=== PATIENT | female | born 1975 | race African-American/Black ===

== ENCOUNTER 2018-08-23 11:45 | Emergency (ER) | payer MEDICAID ==
[~2018-08-23] VITALS: Ht 152.4 cm; Wt 68.0 kg
[~2018-08-23 11:45] MED LIST: ALBU05; AMLO5TAB4 PO; CARB200T MT
[2018-08-23 12:04] VITALS: BP 131/90
[2018-08-24] MEDS ORDERED: ASPI-986 PO (17:44)
[2018-08-24] MEDS ORDERED: HYDR12.54 PO (17:44)
== END 2018-08-23 16:44 | disposition left against medical advice (07) ==
LOC: ER 11:45
DX: Z53.21 Procedure and treatment not carried out due to patient leaving prior to being seen by health care provider (principal)
CPT/HCPCS: 93005

== ENCOUNTER 2018-09-05 11:45 | Emergency (ER) | payer MEDICAID ==
[~2018-09-05 11:45] MED LIST changes: +ASPI-986 PO; +HYDR12.54 PO
[2018-09-05 11:51] VITALS: BP 137/98
== END 2018-09-05 16:12 | disposition left against medical advice (07) ==
LOC: ER 12:23
DX: R07.9 Chest pain, unspecified (principal); R42 Dizziness and giddiness; Z53.21 Procedure and treatment not carried out due to patient leaving prior to being seen by health care provider
CPT/HCPCS: 93005

== ENCOUNTER 2018-11-22 16:14 | Emergency (ER) | payer MEDICAID ==
[~2018-11-22] VITALS: Ht 149.9 cm; Wt 61.0 kg
[~2018-11-22 16:14] MED LIST changes: -ALBU05; +ALBU05 PO
[2018-11-22 16:19] VITALS: BP 118/75
== END 2018-11-22 19:31 | disposition left against medical advice (07) ==
LOC: ER 16:14
DX: Z53.21 Procedure and treatment not carried out due to patient leaving prior to being seen by health care provider (principal)
CPT/HCPCS: 93005

== ENCOUNTER 2018-11-23 09:47 | Inpatient (IN) | payer MEDICAID ==
[~2018-11-23] VITALS: Ht 160 cm; Wt 60.8 kg
[2018-11-23] MEDS ORDERED: ONDANSETRON HCL 4MG/2ML INJ IV STA (18:41)
[2018-11-23] MEDS ORDERED: MORPHINE SULFATE 4 MG/ML CPJ (NOT FOR IM USE) IV STA (18:41)
[2018-11-23] MEDS ORDERED: ASPIRIN 325MG TABLET PO ONE (18:45)
[2018-11-23 19:22] LABS: BASOPHILS % 0.4 % (0.0-2.0); EOSINOPHILS % 3.7 % (0.0-5.0); HEMATOCRIT. 34.8 % (36.0-48.0); HEMOGLOBIN. 11.4 g/dL (12.0-16.0); LYMPHOCYTES % 44.1 % (20.0-50.0); MEAN CORPUSCULAR HEMOGLOBIN 28.1 pg (28.0-32.0); MEAN CORPUSCULAR VOLUME 85.5 fL (81.0-99.0); MEAN PLATELET VOLUME 8.4 fl (7.4-10.4); MONOCYTES % 12.1 % (2.0-8.0); NEUTROPHILS % 39.7 % (40.0-76.0); PLATELET 281 x1000/uL (130-400); RED BLOOD CELL COUNT 4.07 mill/uL (4.2-5.4); RED CELL DISTRIBUTION WIDTH 13.4 % (11.6-14.6)
[2018-11-23 19:25] LABS: CHLORIDE 109 mEq/L (98-107)
[2018-11-23 19:29] LABS: ETHANOL BLOOD < 10 mg/dL
[2018-11-23 21:02] LABS: CLARITY URINE CLOUDY (CLEAR); COLOR URINE YELLOW (YELLOW); KETONES URINE TRACE (NEGATIVE); LEUKOCYTE ESTERASE URINE 2+ (NEGATIVE); NITRITE URINE POSITIVE (NEGATIVE); OCCULT BLOOD URINE NEGATIVE (NEGATIVE); PH URINE 6.5 (4.5-8.0); PROTEIN URINE TRACE (NEGATIVE); SPECIFIC GRAVITY URINE 1.026 (1.005-1.030)
[2018-11-23 21:24] LABS: *AMPHETAMINES SCREEN URINE NEGATIVE (NEGATIVE); *BARBITURATES SCREEN URINE NEGATIVE (NEGATIVE); *BENZODIAZEPINES SCREEN URINE NEGATIVE (NEGATIVE); METHADONE URINE SCREEN NEGATIVE (NEGATIVE)
[2018-11-23 21:25] LABS: CANNABINOID URINE SCREEN NEGATIVE (NEGATIVE); PHENCYCLIDINE URINE SCREEN NEGATIVE (NEGATIVE)
[2018-11-23 21:30] LABS: *COCAINE SCREEN URINE PRESUMTIVE POSITIVE (NEGATIVE)
[2018-11-23 21:31] LABS: OPIATES URINE SCREEN PRESUMTIVE POSITIVE (NEGATIVE)
[2018-11-23] MEDS ORDERED: CEFTRIAXONE 1 G PREMIX 50 ML IV ONE (22:30)
[2018-11-23] MEDS ORDERED: POTASSIUM CHLORIDE 20MEQ TABLET SR PO SCH (22:30)
[2018-11-23] MEDS ORDERED: CARBAMAZEPINE 200MG TABLET PO ONE (22:45)
[2018-11-23] MEDS ORDERED: LORAZEPAM 2MG/ML CPJ IV PRN (23:45)
[2018-11-23] MEDS ORDERED: GUAIFENESIN 200MG/10ML SUGAR FREE UDC PO PRN (23:45)
[2018-11-23] MEDS ORDERED: IPRATROPIUM/ALBUTEROL 0.5-3(2.5)MG/3ML NEB INH PRN (23:45)
[2018-11-23] MEDS ORDERED: DIPHENHYDRAMINE 50MG/ML VIAL IV PRN (23:45)
[2018-11-23] MEDS ORDERED: HYDROCODONE/ACETAMINOPHEN 10/325MG TABLET PO PRN (23:45)
[2018-11-23] MEDS ORDERED: MAGNESIUM/ALUMINUM HYDROXIDE/SIMETHICONE 30ML UDC PO PRN (23:45)
[2018-11-23] MEDS ORDERED: ACETAMINOPHEN 325MG TABLET PO PRN (23:45)
[2018-11-23] MEDS ORDERED: CLONIDINE 0.1MG TABLET PO PRN (23:45)
[2018-11-23] MEDS ORDERED: HYDRALAZINE 20MG/ML VIAL IV PRN (23:45)
[2018-11-23] MEDS ORDERED: ONDANSETRON HCL 4MG/2ML INJ IV PRN (23:45)
[2018-11-23] MEDS ORDERED: HYDROMORPHONE HCL/PF 2MG/ML CPJ IV PRN (23:45)
[2018-11-23] MEDS ORDERED: DOCUSATE SODIUM 100MG CAPSULE PO PRN (23:45)
[2018-11-24] VITALS (8 sets, daily range): BP systolic 123–143; BP diastolic 82–92
[2018-11-24] MEDS: SODIUM CHLORIDE 0.9% INJ 3ML FLUSH IVF SCH ×3 (05:35→21:20)
[2018-11-24] MEDS: THIAMINE HCL 100MG TABLET PO SCH (08:12)
[2018-11-24] MEDS: ENOXAPARIN 40MG/0.4ML SYR SUBCUT SCH (08:12)
[2018-11-24] MEDS ORDERED: ASPIRIN 81MG EC TABLET PO SCH (09:00)
[2018-11-24] MEDS ORDERED: REGADENOSON 0.4 MG/5 ML IV ONE (09:15)
[2018-11-24 09:45] LABS: BASOPHILS % 1.3 % (0.0-2.0); EOSINOPHILS % 4.1 % (0.0-5.0); HEMATOCRIT. 33.4 % (36.0-48.0); HEMOGLOBIN. 10.8 g/dL (12.0-16.0); LYMPHOCYTES % 55.5 % (20.0-50.0); MEAN CORPUSCULAR VOLUME 86.5 fL (81.0-99.0); MEAN PLATELET VOLUME 9.1 fl (7.4-10.4); MONOCYTES % 9.7 % (2.0-8.0); NEUTROPHILS % 29.4 % (40.0-76.0); PLATELET 280 x1000/uL (130-400); RED BLOOD CELL COUNT 3.86 mill/uL (4.2-5.4); RED CELL DISTRIBUTION WIDTH 13.3 % (11.6-14.6)
[2018-11-24 09:51] LABS: CHLORIDE 111 mEq/L (98-107)
[2018-11-24 09:59] LABS: LDL CHOLESTEROL 117 mg/dL (5-100)
[2018-11-24 10:00] LABS: CREATINE KINASE 86 IU/L (26-192); HDL CHOLESTEROL 44 mg/dL (40-59)
[2018-11-24 10:01] LABS: T4 FREE 1.04 ng/dL (0.76-1.46)
[2018-11-24 15:55] LABS: CREATINE KINASE 86 IU/L (26-192)
[2018-11-24 15:56] LABS: CREATINE KINASE MB FRACTION < 1.0 ng/mL (0.5-3.6)
[2018-11-24] MEDS: CARBAMAZEPINE 200MG TABLET PO SCH (17:32)
[2018-11-24] MEDS ORDERED: CEFTRIAXONE 1 G PREMIX 50 ML IV SCH (23:00)
[2018-11-25 04:00] VITALS: BP 123/87
[2018-11-25] MEDS: SODIUM CHLORIDE 0.9% INJ 3ML FLUSH IVF SCH ×2 (06:41→14:00)
[2018-11-25 08:00] VITALS: BP 127/94
[2018-11-25] MEDS: THIAMINE HCL 100MG TABLET PO SCH (08:24)
[2018-11-25] MEDS: ENOXAPARIN 40MG/0.4ML SYR SUBCUT SCH (08:24)
[2018-11-25] MEDS: CARBAMAZEPINE 200MG TABLET PO SCH (08:24)
[2018-11-25] MEDS ORDERED: ASPIRIN 81MG TABLET PO SCH (09:00)
[2018-11-25 12:00] VITALS: BP 111/72
[2018-11-25 12:58] VITALS: BP 111/72
[2018-11-25] MEDS ORDERED: CEFTRIAXONE 1 G PREMIX 50 ML IV SCH (18:00)
== END 2018-11-25 16:35 | disposition home or self-care (01) | DRG 463 ==
LOC: ER 09:52 → 7WST 23:33 → EDBEDREQ 23:41 → EDBEDREQTM 23:41 → ENRESERV 11-24 01:31
PROVIDERS: ADMIT Internal Medicine; ATTEND Internal Medicine
DX: N39.0 Urinary tract infection, site not specified (principal); E78.5 Hyperlipidemia, unspecified; M94.0 Chondrocostal junction syndrome [Tietze]; R07.9 Chest pain, unspecified; I25.10 Atherosclerotic heart disease of native coronary artery without angina pectoris; G40.909 Epilepsy, unspecified, not intractable, without status epilepticus; J44.9 Chronic obstructive pulmonary disease, unspecified; F14.90 Cocaine use, unspecified, uncomplicated; I10 Essential (primary) hypertension; Z90.81 Acquired absence of spleen; Z98.891 History of uterine scar from previous surgery; I25.2 Old myocardial infarction; Z91.018 Allergy to other foods; Z79.899 Other long term (current) drug therapy
CPT/HCPCS: 36415; 71045; 80061; 80305; 81025; 82550; 82553; 83036; 83880; 84439; 84443; 84484; 85379; 87077; 87186; 93005; 93306; 93970; 94640; 96365; 96372; 99291; J0696; J1200; J1650; J2270; J2405; J7050; J7620

== ENCOUNTER 2019-03-01 10:47 | Emergency (ER) | payer MEDICAID ==
[~2019-03-01] VITALS: Ht 152.4 cm; Wt 61.0 kg
[2019-03-01 11:41] LABS: BASOPHILS % 0.7 % (0.0-2.0); EOSINOPHILS % 3.5 % (0.0-5.0); HEMATOCRIT. 36.5 % (36.0-48.0); LYMPHOCYTES % 48.6 % (20.0-50.0); MEAN CORPUSCULAR HEMOGLOBIN 27.4 pg (28.0-32.0); MEAN CORPUSCULAR VOLUME 83.2 fL (81.0-99.0); MEAN PLATELET VOLUME 8.4 fl (7.4-10.4); MONOCYTES % 8.8 % (2.0-8.0); NEUTROPHILS % 38.4 % (40.0-76.0); PLATELET 320 x1000/uL (130-400); RED BLOOD CELL COUNT 4.39 mill/uL (4.2-5.4); RED CELL DISTRIBUTION WIDTH 14.5 % (11.6-14.6)
[2019-03-01 11:48] LABS: CHLORIDE 107 mEq/L (98-107)
[2019-03-01] MEDS ORDERED: KETOROLAC 15MG/ML VIAL IV ONE (13:30)
[2019-03-01 15:45] LABS: *AMPHETAMINES SCREEN URINE NEGATIVE (NEGATIVE); *BARBITURATES SCREEN URINE NEGATIVE (NEGATIVE); *BENZODIAZEPINES SCREEN URINE NEGATIVE (NEGATIVE); METHADONE URINE SCREEN NEGATIVE (NEGATIVE); OPIATES URINE SCREEN NEGATIVE (NEGATIVE)
[2019-03-01 15:46] LABS: CANNABINOID URINE SCREEN NEGATIVE (NEGATIVE); PHENCYCLIDINE URINE SCREEN NEGATIVE (NEGATIVE)
[2019-03-01 15:47] LABS: *COCAINE SCREEN URINE PRESUMTIVE POSITIVE (NEGATIVE)
[2019-03-01 17:13] VITALS: BP 129/87
== END 2019-03-01 17:17 | disposition home or self-care (01) ==
LOC: ER 10:47
DX: G89.29 Other chronic pain (principal); R07.89 Other chest pain; F14.10 Cocaine abuse, uncomplicated; E78.00 Pure hypercholesterolemia, unspecified; I11.9 Hypertensive heart disease without heart failure; J45.909 Unspecified asthma, uncomplicated; I25.10 Atherosclerotic heart disease of native coronary artery without angina pectoris; G40.909 Epilepsy, unspecified, not intractable, without status epilepticus; I25.2 Old myocardial infarction; Z91.018 Allergy to other foods; Z79.899 Other long term (current) drug therapy; Z90.81 Acquired absence of spleen; Z98.890 Other specified postprocedural states
CPT/HCPCS: 36415; 71045; 80053; 80305; 81025; 83880; 84484; 85025; 93005; 96374; 99284; J1885; Z7610

== ENCOUNTER 2020-11-22 10:23 | Emergency (ER) | payer MEDICAID ==
[~2020-11-22] VITALS: Ht 170.2 cm; Wt 59.0 kg
[2020-11-22] MEDS ORDERED: HYDROCODONE/ACETAMINOPHEN 5/325MG TABLET PO ONE (10:45)
[2020-11-22] MEDS ORDERED: ONDANSETRON 4MG ODT PO ONE (10:45)
[2020-11-22] MEDS ORDERED: CEPHALEXIN 250MG CAPSULE PO ONE (10:45)
[2020-11-22 11:01] VITALS: BP 164/99
== END 2020-11-22 11:30 | disposition home or self-care (01) ==
LOC: ER 10:23
DX: K12.2 Cellulitis and abscess of mouth (principal)
CPT/HCPCS: 99284; Q0162

== ENCOUNTER 2022-01-05 07:56 | Inpatient (IN) | payer MEDICAID, OTHER ==
[~2022-01-05] VITALS: Ht 165.1 cm; Wt 73.2 kg
[2022-01-05] MEDS ORDERED: ASPIRIN 81MG TABLET PO ONE (08:00)
[2022-01-05 09:12] LABS: BASOPHILS % 1.2 % (0.0-2.0); EOSINOPHILS % 1.6 % (0.0-5.0); HEMATOCRIT. 39.1 % (36.0-48.0); HEMOGLOBIN. 13.1 g/dL (12.0-16.0); LYMPHOCYTES % 34.4 % (20.0-50.0); MEAN CORPUSCULAR HEMOGLOBIN 27.4 pg (28.0-32.0); MEAN PLATELET VOLUME 8.3 fl (7.4-10.4); MONOCYTES % 9.1 % (2.0-8.0); NEUTROPHILS % 53.7 % (40.0-76.0); PLATELET 329 x1000/uL (130-400); RED BLOOD CELL COUNT 4.77 mill/uL (4.2-5.4); RED CELL DISTRIBUTION WIDTH 13.6 % (11.6-14.6)
[2022-01-05 09:22] LABS: CHLORIDE 105 mEq/L (98-107)
[2022-01-05 09:28] LABS: HCG SCREEN INDETERMINATE
[2022-01-05] MEDS ORDERED: MORPHINE SULFATE 2 MG/ML CPJ (NOT FOR IM USE) IV ONE (10:30)
[2022-01-05 12:03] LABS: CHLORIDE 107 mEq/L (98-107)
[2022-01-05] MEDS ORDERED: ACETAMINOPHEN 325MG TABLET PO PRN (18:00)
[2022-01-05] MEDS ORDERED: ONDANSETRON HCL 4MG/2ML INJ IV PRN (18:00)
[2022-01-05] MEDS ORDERED: CLONIDINE 0.1MG TABLET PO PRN (18:00)
[2022-01-05] MEDS ORDERED: MAGNESIUM/ALUMINUM HYDROXIDE/SIMETHICONE 30ML UDC PO PRN (18:00)
[2022-01-05] MEDS: HYDROCODONE/ACETAMINOPHEN 5/325MG TABLET PO PRN ×2 (18:32→23:31)
[2022-01-05] MEDS ORDERED: NALOXONE HCL 0.4MG/ML VIAL IV PRN (18:45)
[2022-01-05 18:47] LABS: CLARITY URINE CLEAR (CLEAR); COLOR URINE YELLOW (YELLOW); KETONES URINE NEGATIVE (NEGATIVE); LEUKOCYTE ESTERASE URINE 1+ (NEGATIVE); NITRITE URINE NEGATIVE (NEGATIVE); OCCULT BLOOD URINE NEGATIVE (NEGATIVE); PH URINE 6.5 (4.5-8.0); PROTEIN URINE NEGATIVE (NEGATIVE); SPECIFIC GRAVITY URINE 1.015 (1.005-1.030)
[2022-01-05 18:56] LABS: *AMPHETAMINES SCREEN URINE NEGATIVE (NEGATIVE); *BARBITURATES SCREEN URINE NEGATIVE (NEGATIVE)
[2022-01-05 18:57] LABS: *BENZODIAZEPINES SCREEN URINE NEGATIVE (NEGATIVE); *COCAINE SCREEN URINE PRESUMTIVE POSITIVE (NEGATIVE); CANNABINOID URINE SCREEN NEGATIVE (NEGATIVE); METHADONE URINE SCREEN NEGATIVE (NEGATIVE); OPIATES URINE SCREEN PRESUMTIVE POSITIVE (NEGATIVE); PHENCYCLIDINE URINE SCREEN NEGATIVE (NEGATIVE)
[2022-01-05] MEDS: ENOXAPARIN 40MG/0.4ML SYR SUBCUT SCH (20:00)
[2022-01-05 22:28] VITALS: BP 149/94
[2022-01-05] MEDS ORDERED: ATOR-2 PO (22:46)
[2022-01-05] MEDS ORDERED: TRAZ-251 PO (22:46)
[2022-01-05 23:31] VITALS: BP 146/98
[2022-01-06 04:00] VITALS: BP 141/87
[2022-01-06 05:52] LABS: EOSINOPHILS % 5.2 % (0.0-5.0); HEMATOCRIT. 36.8 % (36.0-48.0); HEMOGLOBIN. 12.5 g/dL (12.0-16.0); LYMPHOCYTES % 61.5 % (20.0-50.0); MEAN CORPUSCULAR HEMOGLOBIN 27.7 pg (28.0-32.0); MEAN CORPUSCULAR VOLUME 81.6 fL (81.0-99.0); MEAN PLATELET VOLUME 8.4 fl (7.4-10.4); MONOCYTES % 9.3 % (2.0-8.0); PLATELET 311 x1000/uL (130-400); RED BLOOD CELL COUNT 4.51 mill/uL (4.2-5.4)
[2022-01-06] MEDS: OMEPRAZOLE 20MG CAPSULE EXTENDED RELEASE PO SCH (06:33)
[2022-01-06 08:10] LABS: CHLORIDE 109 mEq/L (98-107)
[2022-01-06 08:18] VITALS: BP 139/82
[2022-01-06 08:41] LABS: PHOSPHORUS 3.8 mg/dL (2.5-4.9)
[2022-01-06 08:42] LABS: LDL CHOLESTEROL 134 mg/dL (5-100)
[2022-01-06 08:45] LABS: HDL CHOLESTEROL 51 mg/dL (40-59)
[2022-01-06 08:46] LABS: T4 FREE 0.89 ng/dL (0.76-1.46)
[2022-01-06] MEDS: HYDROCODONE/ACETAMINOPHEN 5/325MG TABLET PO PRN ×3 (08:48→20:33)
[2022-01-06 11:41] VITALS: BP 121/89
[2022-01-06 16:53] VITALS: BP 141/90
[2022-01-06] MEDS: ENOXAPARIN 40MG/0.4ML SYR SUBCUT SCH (20:39)
[2022-01-06 20:45] VITALS: BP 142/103
[2022-01-07] VITALS: BP 142/72
[2022-01-07 04:00] VITALS: BP 127/94
[2022-01-07 06:59] LABS: CHLORIDE 107 mEq/L (98-107)
[2022-01-07 07:08] LABS: EOSINOPHILS % 5.5 % (0.0-5.0); HEMATOCRIT. 37.2 % (36.0-48.0); HEMOGLOBIN. 12.3 g/dL (12.0-16.0); LYMPHOCYTES % 60.8 % (20.0-50.0); MEAN CORPUSCULAR VOLUME 81.8 fL (81.0-99.0); MEAN PLATELET VOLUME 8.5 fl (7.4-10.4); MONOCYTES % 9.1 % (2.0-8.0); NEUTROPHILS % 23.6 % (40.0-76.0); PLATELET 313 x1000/uL (130-400); RED BLOOD CELL COUNT 4.55 mill/uL (4.2-5.4); RED CELL DISTRIBUTION WIDTH 13.8 % (11.6-14.6)
[2022-01-07] MEDS: OMEPRAZOLE 20MG CAPSULE EXTENDED RELEASE PO SCH (07:46)
[2022-01-07 08:08] VITALS: BP 138/86
[2022-01-07] MEDS: HYDROCODONE/ACETAMINOPHEN 5/325MG TABLET PO PRN (09:14)
[2022-01-07] MEDS ORDERED: OMEP20CA14 PO (09:44)
[2022-01-07] MEDS ORDERED: ASPI-1406 MT (09:44)
[2022-01-07] MEDS ORDERED: NITR-87 MT (09:44)
[2022-01-07 09:48] VITALS: BP 138/86
== END 2022-01-07 11:00 | disposition home or self-care (01) | DRG 203 ==
LOC: ER 08:05 → 5WST 12:55 → ENRESERV 20:26
PROVIDERS: ADMIT Internal Medicine; ATTEND Internal Medicine
DX: M94.0 Chondrocostal junction syndrome [Tietze] (principal); I11.9 Hypertensive heart disease without heart failure; E87.1 Hypo-osmolality and hyponatremia; E78.5 Hyperlipidemia, unspecified; I25.10 Atherosclerotic heart disease of native coronary artery without angina pectoris; E87.5 Hyperkalemia; F32.A Depression, unspecified; G40.909 Epilepsy, unspecified, not intractable, without status epilepticus; J44.9 Chronic obstructive pulmonary disease, unspecified; N83.202 Unspecified ovarian cyst, left side; N39.0 Urinary tract infection, site not specified; I07.1 Rheumatic tricuspid insufficiency; F14.10 Cocaine abuse, uncomplicated; F17.200 Nicotine dependence, unspecified, uncomplicated; Z91.018 Allergy to other foods; Z59.01 Sheltered homelessness; I25.2 Old myocardial infarction; Z90.81 Acquired absence of spleen; Z98.891 History of uterine scar from previous surgery; Z82.49 Family history of ischemic heart disease and other diseases of the circulatory system
CPT/HCPCS: 36415; 71045; 80048; 80053; 80061; 80305; 81003; 83735; 83880; 84100; 84439; 84443; 84484; 84702; 84703; 85025; 93005; 93306; 93970; 99285; J1650; J2270

== ENCOUNTER 2023-03-01 11:17 | Emergency (ER) | payer MEDICAID, OTHER ==
[~2023-03-01] VITALS: Ht 152.4 cm; Wt 82.0 kg
[~2023-03-01 11:17] MED LIST changes: +ASPI-1406 MT; -ASPI-986 PO; +ATOR-2 PO; +NITR-87 MT; +OMEP20CA14 PO; +TRAZ-251 PO
[2023-03-01 11:39] VITALS: BP 155/105
[2023-03-01 12:45] LABS: BASOPHILS % 0.3 % (0.0-2.0); HEMATOCRIT. 39.6 % (36.0-48.0); HEMOGLOBIN. 13.4 g/dL (12.0-16.0); LYMPHOCYTES % 42.5 % (20.0-50.0); MEAN CORPUSCULAR HEMOGLOBIN 27.9 pg (28.0-32.0); MEAN PLATELET VOLUME 8.5 fl (7.4-10.4); MONOCYTES % 9.2 % (2.0-8.0); PLATELET 343 x1000/uL (130-400); RED BLOOD CELL COUNT 4.78 mill/uL (4.2-5.4); RED CELL DISTRIBUTION WIDTH 13.7 % (11.6-14.6)
[2023-03-01 12:47] LABS: CHLORIDE 107 mEq/L (98-107)
== END 2023-03-01 14:39 | disposition left against medical advice (07) ==
LOC: ER 14:00
DX: R07.9 Chest pain, unspecified (principal); Z53.21 Procedure and treatment not carried out due to patient leaving prior to being seen by health care provider
CPT/HCPCS: 36415; 71045; 80053; 84484; 85025; 93005; 99281

== ENCOUNTER 2023-12-02 18:28 | Emergency (ER) | payer MEDICAID ==
[~2023-12-02] VITALS: Ht 157.5 cm; Wt 77.0 kg
[2023-12-02 18:38] VITALS: BP 183/110; PULSE 65; RESP 16; TEMP 97.9; O2SAT 99
[2023-12-02] MEDS ORDERED: HYDROCHLOROTHIAZIDE 12.5MG CAPSULE PO ONE (20:00)
[2023-12-02] MEDS ORDERED: KETOROLAC 60MG/2ML VIAL IM ONE (20:00)
[2023-12-02] MEDS ORDERED: AMLODIPINE 5MG TABLET PO ONE (20:00)
[2023-12-02] MEDS ORDERED: ACETAMINOPHEN 325MG TABLET PO ONE (20:00)
[2023-12-02] MEDS ORDERED: METHOCARBAMOL 750MG TABLET PO SCH (20:00)
[2023-12-02] MEDS ORDERED: CARBAMAZEPINE 100MG TABLET CHEW PO ONE (20:00)
[2023-12-02] MEDS ORDERED: LIDOCAINE 5% PATCH TOP SCH ×2 (20:00→20:30)
== END 2023-12-03 02:25 | disposition left against medical advice (07) ==
LOC: ER 18:28
DX: M25.551 Pain in right hip (principal); R07.89 Other chest pain; E78.00 Pure hypercholesterolemia, unspecified; J45.909 Unspecified asthma, uncomplicated; I25.2 Old myocardial infarction; I10 Essential (primary) hypertension; Z86.59 Personal history of other mental and behavioral disorders; Z79.899 Other long term (current) drug therapy; Z90.81 Acquired absence of spleen; W10.9XXA Fall (on) (from) unspecified stairs and steps, initial encounter; Y93.89 Activity, other specified; Y92.89 Other specified places as the place of occurrence of the external cause; Y99.8 Other external cause status
CPT/HCPCS: 73502; 73552; 71045; 99284; Z7610